=== PATIENT | male | born 1995 | race Caucasian/White ===

== ENCOUNTER 2016-10-19 12:56 | Emergency (ER) | payer SELFPAY ==
[~2016-10-19] VITALS: Ht 167.6 cm; Wt 87.8 kg
[~2016-10-19 12:56] MED LIST: DOXYCYCLINE 10100 MG PO; NO HOME MEDICATIONS
[2016-10-19 13:01] VITALS: BP 138/82; PULSE 78; TEMP 98.2
[2016-10-19] MEDS ORDERED: CEPHALEXIN500 M1 PO (13:23)
== END 2016-10-19 14:00 | disposition home or self-care (01) ==
LOC: COL.ER 12:56
DX: S81.832A Puncture wound without foreign body, left lower leg, initial encounter (principal); Z23 Encounter for immunization; W45.0XXA Nail entering through skin, initial encounter; Y92.69 Other specified industrial and construction area as the place of occurrence of the external cause

== ENCOUNTER 2019-03-06 01:13 | Emergency (ER) | payer SELFPAY ==
[~2019-03-06] VITALS: Ht 162.6 cm; Wt 88.2 kg
[~2019-03-06 01:13] MED LIST changes: +CEPHALEXIN500 M1 PO
[2019-03-06 01:20] VITALS: TEMP 100.1
[2019-03-06 02:14] LABS: ALANINE AMINOTRANSFERASE 58 U/L (21-72); ALBUMIN 4.6 gm/dL (3.5-5.0); ALKALINE PHOSPHATASE 60 U/L (50-136); ANION GAP 10 mmol/L (7-16); AST,SGOT 28 U/L (15-37); BILIRUBIN,TOTAL 0.3 mg/dL (0.0-1.0); BLOOD UREA NITROGEN 21 mg/dL (9-20); CALCIUM 9.3 mg/dL (8.4-10.2); CARBON DIOXIDE 28 mmol/L (22-30); CHLORIDE 102 mmol/L (98-107); GLUCOSE 151 mg/dL (74-106); POTASSIUM 3.5 mmol/L (3.4-5.0); SODIUM 140 mmol/L (137-145); TOTAL PROTEIN 7.7 gm/dL (6.4-8.2); TROPONIN-I < 0.012 ng/mL (0.000-0.035)
[2019-03-06 02:17] LABS: BASO # 0.1 (0.0-0.2); BASO % 0.6 % (0.0-2.0); EOS # 0.3 (0.0-0.7); GRAN # 4.8 (1.4-6.5); GRAN % 58.2 % (42.2-75.2); HEMATOCRIT 42.9 % (42.0-52.0); LYMPH # 2.5 (1.2-3.4); LYMPH % 30.7 % (20.0-51.0); MEAN CELL VOLUME 92 fl (80.0-100.0); MEAN CORPUSCULAR HEMOGLOBIN 32 pg (27.0-31.0); MEAN CORPUSCULAR HGB CONC 35 g/dl (33.0-37.0); MEAN PLATELET VOLUME 9.2 fl (7.4-10.4); MONO # 0.6 (0.1-0.6); MONO % 7.3 % (1.7-9.3); PLATELET COUNT 267 K/mm3 (130-400); RED BLOOD COUNT 4.67 M/mm3 (4.20-5.60); REDCELL DISTRIBUTION WIDTH-CV 11.8 % (11.5-14.5)
[2019-03-06 02:19] LABS: INR 0.9 (0.8-3.0); PROTHROMBIN TIME 10.6 SECONDS (9.7-12.8)
[2019-03-06 02:26] LABS: D-DIMER < 200.00 ng/mLDDu (200-230)
[2019-03-06 03:17] VITALS: BP 133/82; PULSE 62
== END 2019-03-06 03:17 | disposition home or self-care (01) ==
LOC: COL.ER 01:13
PROVIDERS: Emergency Medicine
DX: R07.89 Other chest pain (principal)
CPT/HCPCS: J1885

== ENCOUNTER 2019-03-12 16:13 | Emergency (ER) | payer SELFPAY ==
[~2019-03-12] VITALS: Ht 162.6 cm; Wt 86.4 kg
[2019-03-12 16:43] VITALS: BP 142/78; TEMP 98
[2019-03-12 18:17] LABS: BASO % 0.5 % (0.0-2.0); EOS # 0.1 (0.0-0.7); EOS % 1.9 % (0-4.0); GRAN # 3.4 (1.4-6.5); GRAN % 57.9 % (42.2-75.2); HEMATOCRIT 43.9 % (42.0-52.0); HEMOGLOBIN 15.3 g/dl (13.5-18.0); LYMPH # 1.9 (1.2-3.4); LYMPH % 32.1 % (20.0-51.0); MEAN CELL VOLUME 92 fl (80.0-100.0); MEAN CORPUSCULAR HEMOGLOBIN 32 pg (27.0-31.0); MEAN CORPUSCULAR HGB CONC 35 g/dl (33.0-37.0); MEAN PLATELET VOLUME 9.1 fl (7.4-10.4); MONO # 0.4 (0.1-0.6); MONO % 7.4 % (1.7-9.3); PLATELET COUNT 275 K/mm3 (130-400); RED BLOOD COUNT 4.79 M/mm3 (4.20-5.60); REDCELL DISTRIBUTION WIDTH-CV 11.6 % (11.5-14.5)
[2019-03-12 18:32] LABS: ALANINE AMINOTRANSFERASE 48 U/L (21-72); ALBUMIN 4.8 gm/dL (3.5-5.0); ALKALINE PHOSPHATASE 60 U/L (50-136); ANION GAP 9 mmol/L (7-16); AST,SGOT 32 U/L (15-37); BILIRUBIN,TOTAL 0.6 mg/dL (0.0-1.0); BLOOD UREA NITROGEN 16 mg/dL (9-20); CALCIUM 9.4 mg/dL (8.4-10.2); CARBON DIOXIDE 28 mmol/L (22-30); CHLORIDE 101 mmol/L (98-107); CREATININE, serum 0.59 (0.66-1.25); GLUCOSE 118 mg/dL (74-106); LIPASE 56 U/L (23-300); POTASSIUM 3.8 mmol/L (3.4-5.0); SODIUM 138 mmol/L (137-145)
[2019-03-12 18:39] LABS: COLLECTION METHOD CLEAN CATCH
[2019-03-12 18:40] LABS: C-REACTIVE PROTEIN < 0.5 mg/dL (0.0-0.9)
[2019-03-12 18:46] LABS: MUCOUS Present /lpf; PH 6 (5-8); SQUAMOUS EPITHELIAL None Seen /hpf; URINE APPEARANCE Clear; URINE BACTERIA None Seen /hpf; URINE BILIRUBIN Negative (NEGATIVE); URINE BLOOD Negative (NEGATIVE); URINE COLOR Yellow; URINE GLUCOSE Negative (NEGATIVE); URINE KETONE Negative (NEGATIVE); URINE LEUKOCYTE ESTERASE Negative (NEGATIVE); URINE NITRATE Negative (NEGATIVE); URINE PROTEIN(semi-quant) Negative (NEGATIVE); URINE RBC 0-2 /hpf; URINE UROBILINOGEN Negative (NEGATIVE)
[2019-03-12 19:05] VITALS: PULSE 81
== END 2019-03-12 19:10 | disposition home or self-care (01) ==
LOC: COL.ER 16:13
PROVIDERS: Physician Assistant
DX: K21.9 Gastro-esophageal reflux disease without esophagitis (principal); F17.210 Nicotine dependence, cigarettes, uncomplicated
CPT/HCPCS: J1885

== ENCOUNTER → 2020-05-04 | Outpatient (CLI) | payer SELFPAY ==
[2020-05-04 09:52] LABS: BASO # 0.1 (0.0-0.2); BASO % 0.8 % (0.0-2.0); EOS # 0.2 (0.0-0.7); EOS % 2.9 % (0-4.0); GRAN # 3.8 (1.4-6.5); GRAN % 48.1 % (42.2-75.2); HEMATOCRIT 46.5 % (42.0-52.0); LYMPH # 3.1 (1.2-3.4); LYMPH % 39.4 % (20.0-51.0); MEAN CELL VOLUME 91 fl (80.0-100.0); MEAN CORPUSCULAR HEMOGLOBIN 31 pg (27.0-31.0); MEAN CORPUSCULAR HGB CONC 34 g/dl (33.0-37.0); MEAN PLATELET VOLUME 9.1 fl (7.4-10.4); MONO # 0.7 (0.1-0.6); MONO % 8.7 % (1.7-9.3); PLATELET COUNT 285 K/mm3 (130-400); RED BLOOD COUNT 5.13 M/mm3 (4.20-5.60); REDCELL DISTRIBUTION WIDTH-CV 11.8 % (11.5-14.5)
[2020-05-04 10:03] LABS: ALBUMIN 4.8 gm/dL (3.5-5.0); BILIRUBIN,TOTAL 0.3 mg/dL (0.0-1.0); CALCIUM 9.9 mg/dL (8.4-10.2); CREATININE, serum 0.74 (0.66-1.25); POTASSIUM 4.2 mmol/L (3.4-5.0); TOTAL PROTEIN 8.2 gm/dL (6.4-8.2)
== END ==
LOC: COL.RAD 09:14
PROVIDERS: Internal Medicine
DX: R10.9 Unspecified abdominal pain (principal)

== ENCOUNTER → 2021-01-28 | Outpatient (CLI) | payer SELFPAY | LOC: COL.RAD 09:49 | DX: K21.9 Gastro-esophageal reflux disease without esophagitis (principal) ==